=== PATIENT | female | born 2005 ===

== ENCOUNTER 2024-09-12 06:50 | Outpatient (REF) | payer OTHER, SELFPAY ==
--- NOTE | ~2024-09-12 | US_ITS ---
CLINICAL HISTORY: IRREGULAR CRAMPING BLEEDING X MONTHS, PT HAS IUD US pelvis transvaginal Comparison: None Findings: Transvaginal scanning performed. Anteverted uterus is 7.1 cm length. Normal myometrium. Endometrium 3 mm thickness. IUD appears well-positioned. Right ovary 3.3 x 2 x 2.1 cm. Left ovary 3.4 x 2.6 x 2.1 cm. Normal color Doppler of both ovaries. No free fluid. IMPRESSION: 1. Normal pelvic ultrasound This document has been electronically signed by: Quincy Tena MD on 09/13/2024 08:51:27
== END 2024-09-12 06:51 | disposition home or self-care (01) ==
LOC: HO.UMASIMG 06:50
PROVIDERS: Visit Provider Nurse Practitioner Women's Health
DX: R10.2 Pelvic and perineal pain (principal); N92.6 Irregular menstruation, unspecified
CPT/HCPCS: 76830; 76856

== ENCOUNTER → 2024-09-12 10:30 | Outpatient (BNV) | payer OTHER, SELFPAY | PROVIDERS: Visit Provider Specialist | DX: N93.9 Abnormal uterine and vaginal bleeding, unspecified (principal); Z97.5 Presence of (intrauterine) contraceptive device | CPT/HCPCS: 76830 ==